=== PATIENT | female | born 1940 | race Caucasian/White ===

== ENCOUNTER 2022-01-17 11:57 | Inpatient (IN) | payer OTHER, SELFPAY ==
--- NOTE | ~2022-01-17 | CT_ITS ---
EXAMINATION: CT HEAD WITHOUT CONTRAST CLINICAL INFORMATION: Unsteady gait COMPARISON: None TECHNIQUE: Imaging was performed from the skull base to vertex without intravenous administration of contrast. This CT examination was performed using dose optimization techniques as appropriate, variously including the following: *Automated exposure control *Adjustment of mA and/or kV according to patient size (this includes techniques or standardized protocols for targeted exams where dose is matched to indication/reason for exam; i.e. extremities or head) *Use of iterative reconstruction technique Total exam dose length product: 639 mGy-cm FINDINGS: No intra or extra-axial fluid collection, hemorrhage, or mass. No ventriculomegaly. No midline shift or herniation. Basal cisterns are patent. Prater-white matter differentiation is maintained. No territorial encephalomalacia. No significant volume loss. Patchy periventricular and deep white matter hypoattenuation is consistent with mild small vessel ischemic changes. No calvarial fracture or soft tissue abnormality. The mastoid air cells and visualized portions of the paranasal sinuses are well aerated. A right-sided intraocular drainage device is noted. Mild cavernous carotid vascular calcifications. CT/CT head/brain wo con IMPRESSION: 1. No acute intracranial pathology.
--- NOTE | ~2022-01-17 | XR_ITS ---
EXAMINATION: XR HIP, LEFT CLINICAL INFORMATION: Pain. COMPARISON: None TECHNIQUE: Two views of the left hip. FINDINGS: No acute fractures or malalignment. The femoral heads are well-seated in their respective acetabula. Moderate degenerative changes in both hips, slightly greater on the left side. Symmetric sacroiliac joints. Moderate colonic and rectal stool burden. Nonspecific central calcification in the pelvis, possibly associated with fibroids. XR/XR hip LT w PEL1V IMPRESSION: No acute fractures or malalignment.
--- NOTE | ~2022-01-17 | MR_ITS ---
EXAMINATION: MR BRAIN WITHOUT AND WITH CONTRAST CLINICAL INFORMATION: Gait abnormality. Rule out stroke. COMPARISON: Head CT 01/17/2022. TECHNIQUE: Multiplanar, multisequence imaging of the brain was performed before and after the intravenous administration of 7 mL of Gadavist. FINDINGS: There is a small area of acute infarction involving the right precentral and postcentral gyri best defined on series 4 image . There is no hemorrhagic transformation. A mild amount of cortical enhancement is seen in this region, presumably on the basis of blood brain barrier breakdown An area of chronic hemosiderin staining is seen within the left parietal lobe. There is no mass or extra-axial fluid collection. The ventricles are normal in size without hydrocephalus. Moderate patchy T2/FLAIR hyperintensity seen within the cerebral white matter, typical of chronic microangiopathy. The ventricles and sulci are commensurate with mild degree of diffuse brain parenchymal volume loss. There are bilateral lens replacements. The major arterial flow voids are preserved at the skull base. 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 No evidence of hemorrhagic transformation. Background changes of chronic microangiopathy and brain parenchymal volume loss.
--- NOTE | ~2022-01-17 | US_ITS ---
EXAMINATION: US EXTRACRANIAL CAROTID DUPLEX, BILATERAL CLINICAL INFORMATION: Acute stroke COMPARISON: None TECHNIQUE: Real-time ultrasound and Doppler techniques (integrating B-mode 2-D vascular images, Doppler spectral analysis and color-flow Doppler imaging) were utilized to interrogate the extracranial carotid arteries, the vertebral arteries and proximal subclavian arteries bilaterally. The degree of stenosis is determined by criteria similar to NASCET. FINDINGS: Right Side: 1. There is mild atherosclerotic plaque seen in the bifurcation/proximal ICA region. 2. The common carotid artery PSV proximally is 110 cm/s and distally 82 cm/s. 3. The proximal internal carotid artery velocities are 80 cm/s systolic and 13 cm/s diastolic. 4. The proximal external carotid artery PSV is 121 cm/s. 5. The vertebral artery shows antegrade flow. 6. The subclavian artery waveforms are normal. Left Side: 1. There is mild atherosclerotic plaque seen in the bifurcation/proximal ICA region. 2. The common carotid artery PSV proximally is 123 cm/s and distally 81 cm/s. 3. The proximal internal carotid artery velocities are 54 cm/s systolic and 12 cm/s diastolic. 4. The proximal external carotid artery PSV is 69 cm/s. 5. The vertebral artery shows antegrade flow. 6. The subclavian artery waveforms are normal. ADDITIONAL FINDINGS: Thyroid is enlarged with multiple nodules the largest measuring 2.9 cm on the left. Thyroid ultrasound is recommended for further evaluation. US/US carotid duplex BI IMPRESSION: 1. RIGHT: Minimal, non-hemodynamically significant stenosis of the proximal right internal carotid artery corresponding to a 0-49% stenosis by velocity criteria. 2. LEFT: Minimal, non-hemodynamically significant stenosis of the proximal left internal carotid artery corresponding to a 0-49% stenosis by velocity criteria. 3. Incidentally noted thyroid goiter with nodules as large as 2.9 cm. Baseline thyroid ultrasound is recommended for further attenuation..
--- NOTE | 2022-01-17 12:04 | ED_ITS ---
HPI - General Adult General Chief complaint: Neuro Symptoms/Deficit Stated complaint: ?stroke Time Seen by Provider: 01/17/22 12:04 Source: patient and EMS Mode of arrival: EMS History of Present Illness HPI narrative: This 81-year-old female brought in by EMS from assisted living place who stated that patient was walking fine at 07:30 and then she was noted to have a change in gait. She was brought in as a questionable code stroke. Otherwise, patient herself denies any fevers, chills, shortness of breath, abdominal pain, arm or leg pain. Patient has baseline dementia, but states she did not realize that she was walking funny until someone told her .LKW: 0719 Related Data Allergies Allergy/AdvReac Type Severity Reaction Status Date / Time No Known Allergies Allergy Verified 01/17/22 12:08 Review of Systems Review of Systems: Pertinent positives and negatives as stated in HPI 10 point review of systems is otherwise negative. PMFSH Past Medical History Source: nursing notes reviewed Medical History Fixed dilated pupil of right eye Glaucoma Mitral valve prolapse Social History Social History Alcohol intake: current Alcohol intake frequency: holidays/special occasions only Patient Tobacco Use Status: Never used Tobacco Use of substances other than those prescribed or required for medical reasons: No Advance Directives: No Advance Directives Information Provided: Yes Physical Exam ED Vital Signs: Vital Signs - 24 hr 01/17/22 12:09 01/17/22 14:39 01/17/22 16:00 Temperature 98.2 F 98.3 F Pulse Rate 73 77 67 Respiratory Rate 16 16 16 Blood Pressure 154/80 H 150/69 H 125/57 L Pulse Oximetry 96 93 98 Oxygen Delivery Method Room Air Room Air Room Air BMI result Body Mass Index 25.9 VITAL SIGNS: Reviewed. GENERAL: Well developed, well nourished, in no acute distress. HEAD: Normocephalic/atraumatic EYES: PERRLA, EOMI, Right pupil dilated at baseline EARS: Ext canals without abnormality OROPHARYNX: no oral lesions noted, posterior pharynx clear LUNGS: Normal breath sounds. No adventitious sounds or accessory muscle use. SpO2<96> CARDIOVASCULAR: Regular rate and rhythm without noted murmurs, no JVD or lower e xtremity edema. ABDOMEN: Soft, non-tender, non-distended with bowel sounds. MUSCULOSKELETAL: No tenderness, deformities, or effusions noted on gross inspection. EXTREMITIES: No cyanosis, clubbing or edema. SKIN: Inspection of the skin reveals no rashes NEUROLOGIC: Alert and oriented x 4. Strength and sensation to light touch were grossly intact x 4, no facial asymmetry, no pronator drift, cranial nerves 2-12 are grossly intact, denies any dizziness on lifting her head. NIH Stroke Scale Internal: Initial- Upon Arrival Level of Consciousness: Alert Level of Consciousness Questions: Answers both questions correctly Level of Consciousness Commands: Performs both tasks correctly Best Gaze: Normal ( Patient does have pupil asymmetry which she has a baseline.) Visual: No visual loss Facial Palsy: Normal Motor Arm (Right): No drift Motor Arm (Left): No drift Motor Leg (Right): No drift Motor Leg (Left): No drift Limb Ataxia: Absent Sensory: Normal Best Language: No aphasia Dysarthia: Normal Extinction and Inattention: No abnormality Score: 0 Course Course Course Narrative: 81-year-old female with history and clinical presentation most consistent with alternative diagnosis as there is no evidence of acute neurologic deficit combined with the fact that last known well was 0730. On speaking further with the seen your opto mechanical engineer he states that she appears to have left lower extremity pain on walking. Of note on assessment bilateral leg strength patient is able to strongly push against my hand at the knee symmetrically without noticeable motor deficit. Will evaluate for alternative etiologies at this time. Review of all investigations otherwise negative for acute findings, but on attempts to ambulate patient she complains that her left leg feels weird and describes some numbness over the anterior portion of her left thigh but denies any decreased sensation on the lower leg and states that it feels like her leg will give out . She denies any pain, she was sent for head CT which is otherwise negative. I did discuss this case with Neurology who agrees that pursuing an MRI is not warranted at this time and instead neuro evaluation is within reason. Given patient's concerns regarding her ambulation and the fact that she is in an assisted living environment will discussed with inpatient hospitalist for further evaluation by Neurology. Inpatient hospitalist accepts admission. Medical Decision Making Lab Data Result diagrams: 01/17/22 12:34 01/17/22 12:34 Labs: Lab Results 01/17/22 01/17/22 01/17/22 Range/Units 12:03 12:06 12:34 WBC 6.0 (4.8-10.8) X10*3/uL RBC 4.87 (4.20-5.50) X10*6/uL Hgb 13.4 (12.0-16.0) g/dl Hct 41.8 (37.0-47.0) % MCV 85.8 (80.0-98.0) fL MCH 27.5 (27.0-33.0) pg MCHC 32.1 (31.0-35.0) g/dl RDW 14.0 (11.0-16.0) % Plt Count 218 (160-400) X10*3/uL MPV 9.4 (9.4-12.3) fL Immature Gran % (Auto) 0.2 (0.0-0.4) % Neut % (Auto) 67.2 (45-73) % Lymph % (Auto) 22.6 (20-40) % [place] % (Auto) 8.5 (2-11) % Eos % (Auto) 1.2 (0-4) % Baso % (Auto) 0.3 (0-2) % Lymph # (Auto) 1.4 (1.2-4.9) X10*3/uL [place] # (Auto) 0.5 (0.1-1.2) X10*3/uL Eos # (Auto) 0.1 (0.0-0.4) X10*3/uL Baso # (Auto) 0.0 (0.0-0.2) X10*3/uL Abs Immat Gran (auto) 0.01 (0.00-0.03) X10*3/uL Absolute Neuts (auto) 4.1 (2.0-8.3) x10*3/uL Absolute Nucleated RBC 0.000 (0.0-0.012) X10*3/uL Nucleated RBC % (auto) 0.0 (0.0-0.2) /100WBC Whole Blood PT 11.8 (11.1-13.5) sec Whole Blood INR 1.0 (0.9-1.1) Sodium (135-145) mmol/L Potassium (3.3-5.1) mmol/L Chloride (96-108) mmol/L Carbon Dioxide (22-29) mmol/L Anion Gap (12-20) BUN (9-16) mg/dL Creatinine (0.5-1.4) mg/dL Estim Creat Clear Calc Estimated GFR POC Glucose 93 (60-115) mg/dL Random Glucose (60-115) mg/dL Calcium (8.4-10.2) mg/dL Total Bilirubin (0.0-1.0) mg/dL AST (5-31) U/L ALT (0-31) U/L Alkaline Phosphatase (39-117) U/L Troponin I High Sens (<3.5-17.0) ng/L Total Protein (6.5-8.0) g/dL Albumin (3.5-5.0) g/dL Urine Color Urine Appearance Urine pH (5.0-8.0) Ur Specific [place] (1.005-1.025) Urine Protein (NEG-TRACE) MG/DL Urine Glucose (UA) (NEG) MG/DL Urine Ketones (NEG) MG/DL Urine Blood (NEG) Urine Nitrite (NEG) Ur Leukocyte Esterase (NEG) 01/17/22 01/17/22 01/17/22 Range/Units 12:34 12:34 12:53 WBC (4.8-10.8) X10*3/uL RBC (4.20-5.50) X10*6/uL Hgb (12.0-16.0) g/dl Hct (37.0-47.0) % MCV (80.0-98.0) fL MCH (27.0-33.0) pg MCHC (31.0-35.0) g/dl RDW (11.0-16.0) % Plt Count (160-400) X10*3/uL MPV (9.4-12.3) fL Immature Gran % (Auto) (0.0-0.4) % Neut % (Auto) (45-73) % Lymph % (Auto) (20-40) % [place] % (Auto) (2-11) % Eos % (Auto) (0-4) % Baso % (Auto) (0-2) % Lymph # (Auto) (1.2-4.9) X10*3/uL [place] # (Auto) (0.1-1.2) X10*3/uL Eos # (Auto) (0.0-0.4) X10*3/uL Baso # (Auto) (0.0-0.2) X10*3/uL Abs Immat Gran (auto) (0.00-0.03) X10*3/uL Absolute Neuts (auto) (2.0-8.3) x10*3/uL Absolute Nucleated RBC (0.0-0.012) X10*3/uL Nucleated RBC % (auto) (0.0-0.2) /100WBC Whole Blood PT (11.1-13.5) sec Whole Blood INR (0.9-1.1) Sodium 142 (135-145) mmol/L Potassium 5.1 (3.3-5.1) mmol/L Chloride 108 (96-108) mmol/L Carbon Dioxide 27 (22-29) mmol/L Anion Gap 12 (12-20) BUN 17 H (9-16) mg/dL Creatinine 0.81 (0.5-1.4) mg/dL Estim Creat Clear Calc 53.6 Estimated GFR > 60 POC Glucose (60-115) mg/dL Random Glucose 113 (60-115) mg/dL Calcium 9.6 (8.4-10.2) mg/dL Total Bilirubin 0.5 (0.0-1.0) mg/dL AST 21 (5-31) U/L ALT 17 (0-31) U/L Alkaline Phosphatase 72 (39-117) U/L Troponin I High Sens < 3.5 (<3.5-17.0) ng/L Total Protein 7.0 (6.5-8.0) g/dL Albumin 4.4 (3.5-5.0) g/dL Urine Color YELLOW Urine Appearance CLEAR Urine pH 6.5 (5.0-8.0) Ur Specific [place] <= 1.005 (1.005-1.025) Urine Protein NEG (NEG-TRACE) MG/DL Urine Glucose (UA) NEG (NEG) MG/DL Urine Ketones NEG (NEG) MG/DL Urine Blood NEG (NEG) Urine Nitrite NEG (NEG) Ur Leukocyte Esterase NEG (NEG) ECG Data Attestation: I personally reviewed and interpreted this ECG as follows: Prior ECG tracings: not available for review Interpretation: Sinus rhythm, RBBB, HR - 64, no STEMI, AR/ QTC are within normal limits. Discharge Plan Discharge Clinical Impression: Unsteady gait when walking, Need for assistance due to unsteady gait, Dementia Patient Disposition: Admitted As Inpatient
[2022-01-17 12:09] VITALS: BP 154/80; BP 155/85; PULSE 70; PULSE 73; RESP 16; TEMP 36.8; O2SAT 94; O2SAT 96; BMI 25.9
[2022-01-17 12:09] LABS: Prothrombin Time Whole Bld POC 11.8 sec (11.1-13.5)
[2022-01-17 12:10] LABS: Glucose, Whole Blood 93 mg/dL (60-115)
--- NOTE | 2022-01-17 12:16 | PC.NURSE ---
patient a&ox3, denies pain/discomfort, p c/o lle weakness, neuro otherwise intact, ekg performed, cardiac rehabilitation specialist applied-nsr, vss, gcs 15, pt stated rt eye dilation is normal/baseline for her, call cummins within reach, will continue o monitor
--- NOTE | 2022-01-17 12:24 | ECG_ITS ---
Test Reason : STROKE Blood Pressure : / mmHG Vent. Rate : 064 BPM Atrial Rate : 064 BPM P-R Int : 138 ms QRS Dur : 128 ms QT Int : 418 ms P-R-T Axes : 056 093 013 degrees QTc Int : 431 ms Sinus rhythm with Fusion complexes Right bundle branch block Abnormal ECG No previous ECGs available Referred By: Cherrie Villalpando Electronically Signed By:Marquise Barr
[2022-01-17 12:40] LABS: MANUAL DIFF FLAG NO
[2022-01-17 12:42] LABS: Basophils Percent Auto 0.3 % (0-2); Eosinophils Absolute Auto 0.1 X10*3/uL (0.0-0.4); Eosinophils Percent Auto 1.2 % (0-4); Hematocrit 41.8 % (37.0-47.0); Hemoglobin 13.4 g/dl (12.0-16.0); Imm Gran Abs Auto 0.01 X10*3/uL (0.00-0.03); Imm Gran Pct Auto 0.2 % (0.0-0.4); Lymphocytes Absolute Auto 1.4 X10*3/uL (1.2-4.9); Lymphocytes Percent Auto 22.6 % (20-40); Mean Corpuscular HGB Conc 32.1 g/dl (31.0-35.0); Mean Corpuscular Hemoglobin 27.5 pg (27.0-33.0); Mean Corpuscular Volume 85.8 fL (80.0-98.0); Mean Platelet Volume 9.4 fL (9.4-12.3); Monocytes Absolute Auto 0.5 X10*3/uL (0.1-1.2); Monocytes Percent Auto 8.5 % (2-11); Neutrophils Absolute Auto 4.1 x10*3/uL (2.0-8.3); Neutrophils Percent Auto 67.2 % (45-73); Platelet Count 218 X10*3/uL (160-400); Red Blood Count 4.87 X10*6/uL (4.20-5.50)
[2022-01-17 12:58] LABS: Alanine Aminotransferase 17 U/L (0-31); Albumin Level 4.4 g/dL (3.5-5.0); Alkaline Phosphatase 72 U/L (39-117); Anion Gap 12 (12-20); Aspartate Amino Transferase 21 U/L (5-31); Bilirubin Total 0.5 mg/dL (0.0-1.0); Blood Urea Nitrogen 17 mg/dL (9-16); Calcium 9.6 mg/dL (8.4-10.2); Carbon Dioxide 27 mmol/L (22-29); Chloride 108 mmol/L (96-108); Creatinine Clr Calc Pharmacy 53.6; Estimated Glomerular Filt Rate > 60; Glucose Random 113 mg/dL (60-115); Potassium 5.1 mmol/L (3.3-5.1); Sodium 142 mmol/L (135-145)
[2022-01-17 13:01] LABS: Appearance Urine CLEAR; Color Urine YELLOW; Glucose Urine UA NEG (NEG); Leukocyte Esterase Urine NEG (NEG); Nitrite Urine NEG (NEG); PH 6.5 (5.0-8.0); Specific Gravity - Urine <= 1.005 (1.005-1.025); Urine Blood NEG (NEG); Urine Ketones NEG (NEG); Urine Protein NEG (NEG-TRACE)
[2022-01-17 13:04] LABS: Troponin-I High Sensitivity < 3.5 ng/L (<3.5-17.0)
--- NOTE | 2022-01-17 14:00 | PC.NURSE ---
daughter number Daughter: Elvira [phone] Daughter is currently out of the country in [place], is available via phone at anytime. She has been updated when she calls per mother request.
[2022-01-17 14:39] VITALS: BP 150/69; PULSE 77; RESP 16; O2SAT 93
--- NOTE | 2022-01-17 15:10 | PC.NURSE ---
pt to ct scan
[2022-01-17 16:00] VITALS: BP 125/57; PULSE 67; RESP 16; TEMP 36.8; O2SAT 98
--- NOTE | 2022-01-17 17:03 | PC.NURSE ---
patient alert to baseline, continues to complain of leg weakness, no c/o pain or discomfort, vitals continue to be stable, will continue to monitor
[2022-01-17 17:36] LABS: COVID-19 Test Negative (Negative)
--- NOTE | 2022-01-17 17:52 | PHA.MEDREC ---
Addendum entered by John Pollard, [facility] 01/17/22 17:56: called [facility], they do not have a med list Original Note: Pharmacy Consult ? Medication Reconciliation Pharmacy has completed the medication reconciliation. Spoke with pt's daughter. confirmed with daughter that pt is on 3 eyedrops
--- NOTE | 2022-01-17 17:55 | PM.IMHP ---
History of Present Illness Date of Service: 01/17/22 Chief Complaint: Left lower extremity weakness A 81 years old lady with PMH of glaucoma, advanced dementia on assisted living who presents to the hospital by EMS for reported abnormal gait and left lower extremity weakness. The patient is very poor historian, no information given by the staff at the assisted living, most information from MD and EMS. She reports not remembering why did she end up in the hospital. Denies feeling any weakness in any part of her body at this point. Seems like in the morning she was seen walking in an awkward way and that was concerning for the staff who felt that her left lower extremity was weaker. She was brought to the emergency but scored [address] scan of the head was done came back negative for any acute findings. Blood work within normal with no acute infection noted. Will be admitted for further evaluation and monitoring. Review of Systems Review of Systems: No fever, chills or weakness No chest pain, palpitation No shortness of breath or coughing No abdominal pain, nausea or vomiting No urinary symptoms No any rash or wounds PMFSH Medical History Fixed dilated pupil of right eye Glaucoma Mitral valve prolapse Social History Alcohol intake: current Alcohol intake frequency: holidays/special occasions only Patient Tobacco Use Status: Never used Tobacco Use of substances other than those prescribed or required for medical reasons: No Advance Directives: No Advance Directives Information Provided: Yes Meds Allergies Allergy/AdvReac Type Severity Reaction Status Date / Time No Known Allergies Allergy Verified 01/17/22 12:08 Active Medications: Current Medications Acetaminophen (Acetaminophen 325 Mg Tablet) 650 mg PO Q6H PRN PRN Reason: Pain, Mild (Pain Scale 1-3) Donepezil HCl (Donepezil Hcl 5 Mg Tablet) 5 mg PO DAILY ARIELA Dorzolamide HCl (Dorzolamide Hcl 2 % Ophth Gavi 10 Ml Drpbtl) 1 drop EYE-LEFT BID ARIELA Enoxaparin Sodium (Enoxaparin Sodium 40 Mg/0.4 Ml Syringe) 40 mg SUBCUT Q24H ARIELA Ondansetron HCl (Ondansetron Hcl 4 Mg/2 Ml Vial) 4 mg IVPUSH Q8H PRN PRN Reason: Nausea and Vomiting Pharmacy Consult (Consult Rx Perform Med Rec) 1 each MISCELLANE ONCE PRN PRN Reason: Consult order Pharmacy Consult (Consult Rx Perform Med Rec) 1 each MISCELLANE ONCE PRN PRN Reason: Consult order Home Medications Medication Instructions Recorded Confirmed Last Taken Type brimonidine 0.2 % eye drops 1 drp ophthalmic-Left BID 01/17/22 01/17/22 Unknown History donepezil 5 mg tablet 1 tab PO DAILY 01/17/22 01/17/22 Unknown History dorzolamide 2 % eye drops 1 drp ophthalmic-Left BID 01/17/22 01/17/22 Unknown History multivitamin 1 tab PO DAILY 01/17/22 01/17/22 Unknown History timolol maleate 0.5 % eye drops 1 drp ophthalmic (eye) BID 01/17/22 01/17/22 Unknown History Physical Exam Vital Signs and Narrative: Vital Signs: Last Vital Signs Temp 98.3 F 01/17/22 16:00 Pulse 67 01/17/22 16:00 Resp 16 01/17/22 16:00 BP 125/57 L 01/17/22 16:00 Pulse Ox 98 01/17/22 16:00 O2 Del Method 01/17/22 16:00 BMI result Body Mass Index 25.9 Const: Other: Constitutional : Alert, oriented, not in distress Neck : Normal inspection, Supple Cardiovascular : RRR, no JVP, no lower extremity edema Respiratory : fair bilateral air entry, no crackles, wheezes or rhonchi Gastrointestinal: soft, lax, Normal bowel sounds, Non tender Skin : Warm, Dry Neurological : Alert & oriented x3, No focal deficit , CN 2-12 within normal, mild superficial sensation difference between upper and lower thigh with decreased feeling in the thigh area left leg Results Labs CBC and Chem 7: 01/17/22 12:34 01/17/22 12:34 Labs: Laboratory Results - last 24 hr 01/17/22 01/17/22 01/17/22 12:03 12:06 12:34 MCV 85.8 MCH 27.5 MCHC 32.1 RDW 14.0 Plt Count 218 MPV 9.4 Immature Gran % (Auto) 0.2 Neut % (Auto) 67.2 Lymph % (Auto) 22.6 [place] % (Auto) 8.5 Eos % (Auto) 1.2 Baso % (Auto) 0.3 Lymph # (Auto) 1.4 [place] # (Auto) 0.5 Eos # (Auto) 0.1 Baso # (Auto) 0.0 Abs Immat Gran (auto) 0.01 Absolute Neuts (auto) 4.1 Absolute Nucleated RBC 0.000 Nucleated RBC % (auto) 0.0 Whole Blood PT 11.8 Whole Blood INR 1.0 Anion Gap Estim Creat Clear Calc Estimated GFR POC Glucose 93 Random Glucose Calcium Total Bilirubin AST ALT Alkaline Phosphatase Troponin I High Sens Total Protein Albumin Urine Color Urine Appearance Urine pH Ur Specific [place] Urine Protein Urine Glucose (UA) Urine Ketones Urine Blood Urine Nitrite Ur Leukocyte Esterase COVID-19 (PATEL) COVID-19 [employer] 01/17/22 01/17/22 01/17/22 12:34 12:34 12:53 MCV MCH MCHC RDW Plt Count MPV Immature Gran % (Auto) Neut % (Auto) Lymph % (Auto) [place] % (Auto) Eos % (Auto) Baso % (Auto) Lymph # (Auto) [place] # (Auto) Eos # (Auto) Baso # (Auto) Abs Immat Gran (auto) Absolute Neuts (auto) Absolute Nucleated RBC Nucleated RBC % (auto) Whole Blood PT Whole Blood INR Anion Gap 12 Estim Creat Clear Calc 53.6 Estimated GFR > 60 POC Glucose Random Glucose 113 Calcium 9.6 Total Bilirubin 0.5 AST 21 ALT 17 Alkaline Phosphatase 72 Troponin I High Sens < 3.5 Total Protein 7.0 Albumin 4.4 Urine Color YELLOW Urine Appearance CLEAR Urine pH 6.5 Ur Specific [place] <= 1.005 Urine Protein NEG Urine Glucose (UA) NEG Urine Ketones NEG Urine Blood NEG Urine Nitrite NEG Ur Leukocyte Esterase NEG COVID-19 (PATEL) COVID-[employer] 01/17/22 17:08 MCV MCH MCHC RDW Plt Count MPV Immature Gran % (Auto) Neut % (Auto) Lymph % (Auto) [place] % (Auto) Eos % (Auto) Baso % (Auto) Lymph # (Auto) [place] # (Auto) Eos # (Auto) Baso # (Auto) Abs Immat Gran (auto) Absolute Neuts (auto) Absolute Nucleated RBC Nucleated RBC % (auto) Whole Blood PT Whole Blood INR Anion Gap Estim Creat Clear Calc Estimated GFR POC Glucose Random Glucose Calcium Total Bilirubin AST ALT Alkaline Phosphatase Troponin I High Sens Total Protein Albumin Urine Color Urine Appearance Urine pH Ur Specific [place] Urine Protein Urine Glucose (UA) Urine Ketones Urine Blood Urine Nitrite Ur Leukocyte Esterase COVID-19 (PATEL) Negative COVID-19 Clin Com See Note Imaging Radiologist's Impressions: Impressions Head CT 01/17/22 15:17 IMPRESSION: 1. No acute intracranial pathology. Hip/Pelvis X-Ray 01/17/22 17:42 IMPRESSION: No acute fractures or malalignment. Assessment and Plan (1) Unsteady gait when walking: Status: Acute (2) Transient left leg weakness: Status: Acute Plan A 81 years old lady with PMH of glaucoma, advanced dementia on assisted living who presents to the hospital by EMS for reported abnormal gait and left lower extremity weakness. Transient left leg weakness Unclear from the history CT scan negative for any acute findings Seems more sensation than strength Neuro checks for possible TIA Get Neurology evaluation Keep on telemetry Check lipid profile Start baby aspirin Unsteady gait to get PT and OT evaluation Glaucoma continue home eye drops DVT PPX Lovenox Quality Stroke Does the patient have a stroke diagnosis?: No VTE Prior VTE?: No VTE Risk Level:: Medical - moderate - high VTE Device Contraindication: Treatment Not Indicated VTE Drug Contraindication: N/A - Med Ordered
[2022-01-17] MEDS: Aspirin Enteric Coated 81 MG TABLET.DR PO (18:22)
[2022-01-17] MEDS: Enoxaparin Sodium 40 MG/0.4 ML SYRINGE SUBCUT (18:22)
--- NOTE | 2022-01-17 18:23 | PC.NURSE ---
patient alert to baseline, pt medicated per order, cardiac monito intact, call cummins within reach, will continue to monitor
--- NOTE | 2022-01-17 18:51 | PC.NURSE ---
called floor to give report, go rns name, tiger texted nurse to give report- awaiting for a call back
[2022-01-17 20:00] VITALS: BP 128/61; PULSE 68; RESP 18; TEMP 36.2; O2SAT 98
[2022-01-17 23:07] VITALS: BP 119/55; PULSE 68; RESP 18; TEMP 36.7; O2SAT 93
[2022-01-17] MEDS: timoloL maleate 0.5 % Oph Sol 5 ML DRBTL 1 DROP EYE-BOTH (23:34)
[2022-01-17] MEDS: Dorzolamide HCl 2 % Ophth Sol 10 ML DRPBTL 1 DROP EYE-LEFT (23:34)
[2022-01-17] MEDS: Brimonidine Tartrate 0.2% Oph 5 ML BOTTLE 1 DROP EYE-LEFT (23:34)
[2022-01-18] VITALS (7 sets, daily range): BP systolic 103–131; BP diastolic 55–63; PULSE 60–78; RESP 18–20; TEMP 36.1–37.2; O2SAT 90–98
[2022-01-18 07:38] LABS: Anion Gap 10 (12-20); Blood Urea Nitrogen 16 mg/dL (9-16); Calcium 8.9 mg/dL (8.4-10.2); Carbon Dioxide 27 mmol/L (22-29); Chloride 109 mmol/L (96-108); Cholesterol 220 mg/dL; Creatinine Clr Calc Pharmacy 62.9; Estimated Glomerular Filt Rate > 60; Glucose Random 96 mg/dL (60-115); HDL Cholesterol 49 mg/dL; LDL Cholesterol Calculated 154 mg/dl; Potassium 4.7 mmol/L (3.3-5.1); Sodium 141 mmol/L (135-145); Triglycerides 85 mg/dL
--- NOTE | 2022-01-18 08:09 | MHC.CM.PN ---
CM met with Patient at bedside and addressed IMM with her, providing her with the original and placing a copy on the chart. Patient lives in an apartment with her and 2 Adult Children and she uses a cane to assist with mobility. Home no services is the goal (no PCP/functionally independent) and CM has initiated and will follow for dc planning. Patient is Covid vax'd X2.
[2022-01-18] MEDS: Donepezil HCl 5 MG TABLET PO (08:27)
[2022-01-18] MEDS: Aspirin Enteric Coated 81 MG TABLET.DR PO (08:27)
[2022-01-18] MEDS: Multivitamin TABLET 1 TAB PO (08:27)
[2022-01-18] MEDS: Dorzolamide HCl 2 % Ophth Sol 10 ML DRPBTL 1 DROP EYE-LEFT ×2 (08:28→20:02)
[2022-01-18] MEDS: timoloL maleate 0.5 % Oph Sol 5 ML DRBTL 1 DROP EYE-BOTH ×2 (08:28→20:02)
[2022-01-18] MEDS: Brimonidine Tartrate 0.2% Oph 5 ML BOTTLE 1 DROP EYE-LEFT ×2 (08:28→20:02)
--- NOTE | 2022-01-18 09:09 | MHC.CM.PN ---
Patient has a diagnosis of Dementia so CM attempted to call Daughter/HCP/Elvira @ [phone] but she was unavailable. CM went to Patient's room to see if Daughter was at bedside and Patient appeared to be responding appropriately to questions. Per Patient, she lives alone at [facility] and she receives a knock on the door daily from [facility] staff to remind her to take her eye drops. Patient may benefit from new VNA at some point. Home is the goal and CM has initiated and will follow for dc planning. Patient states that Elvira is out of town; Patient cannot recall the name of her PCP but states that Elvira will know the name. Patient received 2 Covid vax while at [facility].
--- NOTE | 2022-01-18 11:26 | P.CNNE_ITS ---
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 She had no recollection of what had happened stating that he did not know why she was here. She provided some of her own history but also stated that she was not sure how long she has been living in [facility]. According to her her daughter presently was vacationing in [place]. She denied any pain or loss of bowel bladder control. Review of Systems Review of Systems: No recent cold or flu-like illness PMFSH Past Medical History Medical History Fixed dilated pupil of right eye Glaucoma Mitral valve prolapse Social History Social History Alcohol intake: current Alcohol intake frequency: holidays/special occasions only Patient Tobacco Use Status: Never used Tobacco service: No Current occupational status: retired [employer] Allergies Allergy/AdvReac Type Severity Reaction Status Date / Time No Known Allergies Allergy Verified 01/17/22 12:08 Active Medications: Current Medications Acetaminophen (Acetaminophen 325 Mg Tablet) 650 mg PO Q6H PRN PRN Reason: Pain, Mild (Pain Scale 1-3) Aspirin (Aspirin Enteric Coated 81 Mg Tablet.Dr) 81 mg PO DAILY [facility] Last Admin: 01/18/22 08:27 Dose: 81 mg Brimonidine Tartrate (Brimonidine Tartrate 0.2% Oph 5 Ml Bottle) 1 drop EYE- LEFT BID [facility] Last Admin: 01/18/22 08:28 Dose: 1 drop Donepezil HCl (Donepezil Hcl 5 Mg Tablet) 5 mg PO DAILY [facility] Last Admin: 01/18/22 08:27 Dose: 5 mg Dorzolamide HCl (Dorzolamide Hcl 2 % Ophth Gavi 10 Ml Drpbtl) 1 drop EYE-LEFT BID [facility] Last Admin: 01/18/22 08:28 Dose: 1 drop Enoxaparin Sodium (Enoxaparin Sodium 40 Mg/0.4 Ml Syringe) 40 mg SUBCUT Q24H [facility] Last Admin: 01/17/22 18:22 Dose: 40 mg Multivitamins/Vitamin C (Multivitamin Tablet) 1 tab PO DAILY [facility] Last Admin: 01/18/22 08:27 Dose: 1 tab Ondansetron HCl (Ondansetron Hcl 4 Mg/2 Ml Vial) 4 mg IVPUSH Q8H PRN PRN Reason: Nausea and Vomiting Pharmacy Consult (Consult Rx Perform Med Rec) 1 each MISCELLANE ONCE PRN PRN Reason: Consult order Pharmacy Consult (Consult Rx Perform Med Rec) 1 each MISCELLANE ONCE PRN PRN Reason: Consult order Timolol Maleate (Timolol Maleate 0.5 % Oph Gavi 5 Ml Drbtl) 1 drop EYE-BOTH BID [facility] Last Admin: 01/18/22 08:28 Dose: 1 drop Home Medications Medication Instructions Recorded Confirmed Last Taken Type brimonidine 0.2 % eye drops 1 drp ophthalmic-Left BID 01/17/22 01/17/22 Unknown History donepezil 5 mg tablet 1 tab PO DAILY 01/17/22 01/17/22 Unknown History dorzolamide 2 % eye drops 1 drp ophthalmic-Left BID 01/17/22 01/17/22 Unknown History multivitamin 1 tab PO DAILY 01/17/22 01/17/22 Unknown History timolol maleate 0.5 % eye drops 1 drp ophthalmic (eye) BID 01/17/22 01/17/22 Unknown History Physical Exam Vital Signs: Vital Signs: Last Vital Signs Temp 97.5 F 01/18/22 07:51 Pulse 68 01/18/22 07:51 Resp 20 01/18/22 07:51 BP 130/61 01/18/22 07:51 Pulse Ox 90 L 01/18/22 07:51 O2 Del Method 01/18/22 07:51 BMI result Body Mass Index 25.9 Neuro: Other: Alert and awake with normal spontaneity of speech fluency comprehension and affect. Memory for recent events was affected as reported in HPI. Pupils were round, some right slightly bigger than left. There was mild right-sided ptosis. Face was symmetrical. There was no focal arm or leg weakness. Deep tendon reflexes were trace with flexor plantars. She was able to get up and walk to the other side of the room with no significant difficulty. When turning around, she was slightly unsteady. Speech was normal. Results Labs CBC & Chem 7: 01/17/22 12:34 01/18/22 06:17 Labs: Short CBC 01/17/22 Range/Units 12:34 WBC 6.0 (4.8-10.8) X10*3/uL Hgb 13.4 (12.0-16.0) g/dl Hct 41.8 (37.0-47.0) % Plt Count 218 (160-400) X10*3/uL BMP 01/17/22 01/18/22 12:34 06:17 Sodium 142 141 Potassium 5.1 4.7 Chloride 108 109 H Carbon Dioxide 27 27 BUN 17 H 16 Creatinine 0.81 0.69 Calcium 9.6 8.9 D Liver Function 01/17/22 Range/Units 12:34 Total Bilirubin 0.5 (0.0-1.0) mg/dL AST 21 (5-31) U/L ALT 17 (0-31) U/L Alkaline Phosphatase 72 (39-117) U/L Albumin 4.4 (3.5-5.0) g/dL Urine 01/17/22 Range/Units 12:53 Urine Color YELLOW Urine Appearance CLEAR Urine pH 6.5 (5.0-8.0) Ur Specific [place] <= 1.005 (1.005-1.025) Urine Protein NEG (NEG-TRACE) MG/DL Urine Glucose (UA) NEG (NEG) MG/DL Noncontrast head CT revealed moderately severe diffuse cerebral atrophy Assessment and Plan (1) Unsteady gait when walking: Status: Acute 81 years old woman who probably has 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 She did not know what had happened and had no recollection. Her examination at this time revealed cognitive difficulties in mild gait disorder. Exact etiology of recent change in her gait pattern was unclear. I would recommend obtaining an MRI of brain without contrast rule out any stroke, and if that is negative, also an EEG to rule out possibility of seizure disorder as she had no recollection of what had happened. (2) Dementia: Status: Acute Procedures Date of Service Date of Service: 01/18/22
--- NOTE | 2022-01-18 11:59 | HO.PM.IMPN ---
Subjective Subjective Date of Service: 01/18/22 Interval History: Seen and evaluated this morning Reporting left leg weakness upon ambulating Feels strong otherwise No other overnight events Review of Systems No fever, chills or weakness No chest pain, palpitation No shortness of breath or coughing No abdominal pain, nausea or vomiting No urinary symptoms No any rash or wounds Physical Exam Vital Signs: Vital Signs: Last Vital Signs Temp 98.2 F 01/18/22 11:28 Pulse 64 01/18/22 11:28 Resp 20 01/18/22 11:28 BP 103/55 L 01/18/22 11:28 Pulse Ox 93 01/18/22 11:28 O2 Del Method 01/18/22 11:28 BMI result Body Mass Index 25.9 Const: Other: Constitutional : Alert, oriented, not in distress Neck : Normal inspection, Supple Cardiovascular : RRR, no JVP, no lower extremity edema Respiratory : fair bilateral air entry, no crackles, wheezes or rhonchi Gastrointestinal: soft, lax, Normal bowel sounds, Non tender Skin : Warm, Dry Neurological : Alert & oriented x3, No focal deficit , CN 2-12 within normal, mild superficial sensation difference between right and left thigh with more decreased sensation in the left leg but no paresthesia or pain Objective Data Active Medications Acetaminophen (Acetaminophen 325 Mg Tablet) 650 mg PO Q6H PRN PRN Reason: Pain, Mild (Pain Scale 1-3) Aspirin (Aspirin Enteric Coated 81 Mg Tablet.) 81 mg PO DAILY [facility] Last Admin: 01/18/22 08:27 Dose: 81 mg Documented By: JESSE Brimonidine Tartrate (Brimonidine Tartrate 0.2% Oph 5 Ml Bottle) 1 drop EYE-LEFT BID [facility] Last Admin: 01/18/22 08:28 Dose: 1 drop Documented By: JESSE Donepezil HCl (Donepezil Hcl 5 Mg Tablet) 5 mg PO DAILY [facility] Last Admin: 01/18/22 08:27 Dose: 5 mg Documented By: JESSE Dorzolamide HCl (Dorzolamide Hcl 2 % Ophth Gavi 10 Ml Drpbtl) 1 drop EYE-LEFT BID [facility] Last Admin: 01/18/22 08:28 Dose: 1 drop Documented By: JESSE Enoxaparin Sodium (Enoxaparin Sodium 40 Mg/0.4 Ml Syringe) 40 mg SUBCUT Q24H [facility] Last Admin: 01/17/22 18:22 Dose: 40 mg Documented By: JESSICA Multivitamins/Vitamin C (Multivitamin Tablet) 1 tab PO DAILY [facility] Last Admin: 01/18/22 08:27 Dose: 1 tab Documented By: JESSE Ondansetron HCl (Ondansetron Hcl 4 Mg/2 Ml Vial) 4 mg IVPUSH Q8H PRN PRN Reason: Nausea and Vomiting Pharmacy Consult (Consult Rx Perform Med Rec) 1 each MISCELLANE ONCE PRN PRN Reason: Consult order Pharmacy Consult (Consult Rx Perform Med Rec) 1 each MISCELLANE ONCE PRN PRN Reason: Consult order Timolol Maleate (Timolol Maleate 0.5 % Oph Gavi 5 Ml Drbtl) 1 drop EYE-BOTH BID [facility] Last Admin: 01/18/22 08:28 Dose: 1 drop Documented By: JESSE Labs CBC & Chem 7: 01/17/22 12:34 01/18/22 06:17 Labs: Laboratory Results - last 24 hr 01/17/22 01/17/22 01/17/22 12:03 12:06 12:34 MCV 85.8 MCH 27.5 MCHC 32.1 RDW 14.0 Plt Count 218 MPV 9.4 Immature Gran % (Auto) 0.2 Neut % (Auto) 67.2 Lymph % (Auto) 22.6 Jewell % (Auto) 8.5 Eos % (Auto) 1.2 Baso % (Auto) 0.3 Lymph # (Auto) 1.4 Jewell # (Auto) 0.5 Eos # (Auto) 0.1 Baso # (Auto) 0.0 Abs Immat Gran (auto) 0.01 Absolute Neuts (auto) 4.1 Absolute Nucleated RBC 0.000 Nucleated RBC % (auto) 0.0 Whole Blood PT 11.8 Whole Blood INR 1.0 Anion Gap Estim Creat Clear Calc Estimated GFR POC Glucose 93 Random Glucose Calcium Total Bilirubin AST ALT Alkaline Phosphatase Troponin I High Sens Total Protein Albumin Triglycerides Cholesterol LDL Cholesterol, Calc HDL Cholesterol Urine Color Urine Appearance Urine pH Ur Specific [place] Urine Protein Urine Glucose (UA) Urine Ketones Urine Blood Urine Nitrite Ur Leukocyte Esterase COVID-19 (PATEL) COVID-19 Clin Com 01/17/22 01/17/22 01/17/22 12:34 12:34 12:53 MCV MCH MCHC RDW Plt Count MPV Immature Gran % (Auto) Neut % (Auto) Lymph % (Auto) Jewell % (Auto) Eos % (Auto) Baso % (Auto) Lymph # (Auto) Jewell # (Auto) Eos # (Auto) Baso # (Auto) Abs Immat Gran (auto) Absolute Neuts (auto) Absolute Nucleated RBC Nucleated RBC % (auto) Whole Blood PT Whole Blood INR Anion Gap 12 Estim Creat Clear Calc 53.6 Estimated GFR > 60 POC Glucose Random Glucose 113 Calcium 9.6 Total Bilirubin 0.5 AST 21 ALT 17 Alkaline Phosphatase 72 Troponin I High Sens < 3.5 Total Protein 7.0 Albumin 4.4 Triglycerides Cholesterol LDL Cholesterol, Calc HDL Cholesterol Urine Color YELLOW Urine Appearance CLEAR Urine pH 6.5 Ur Specific [place] <= 1.005 Urine Protein NEG Urine Glucose (UA) NEG Urine Ketones NEG Urine Blood NEG Urine Nitrite NEG Ur Leukocyte Esterase NEG COVID-19 (PATEL) COVID-19 [facility] 01/17/22 01/18/22 17:08 06:17 MCV MCH MCHC RDW Plt Count MPV Immature Gran % (Auto) Neut % (Auto) Lymph % (Auto) Jewell % (Auto) Eos % (Auto) Baso % (Auto) Lymph # (Auto) Jewell # (Auto) Eos # (Auto) Baso # (Auto) Abs Immat Gran (auto) Absolute Neuts (auto) Absolute Nucleated RBC Nucleated RBC % (auto) Whole Blood PT Whole Blood INR Anion Gap 10 L Estim Creat Clear Calc 62.9 Estimated GFR > 60 POC Glucose Random Glucose 96 Calcium 8.9 D Total Bilirubin AST ALT Alkaline Phosphatase Troponin I High Sens Total Protein Albumin Triglycerides 85 Cholesterol 220 LDL Cholesterol, Calc 154 HDL Cholesterol 49 Urine Color Urine Appearance Urine pH Ur Specific [place] Urine Protein Urine Glucose (UA) Urine Ketones Urine Blood Urine Nitrite Ur Leukocyte Esterase COVID-19 (PATEL) Negative COVID-19 [facility] See Note Assessment and Plan (1) Transient left leg weakness: Status: Acute (2) Unsteady gait when walking: Status: Acute Plan A 81 years old lady with PMH of glaucoma, advanced dementia on assisted living who presents to the hospital by EMS for reported abnormal gait and left lower extremity weakness. # Transient left leg weakness # abnormal gait CT scan negative for any acute findings Seems more sensation than strength Neuro checks Pending Neurology evaluation Keep on telemetry Within normal lipid profile Started on baby aspirin Unsteady gait Pending PT and OT evaluation Glaucoma continue home eye drops DVT PPX Lovenox Quality Stroke Does the patient have a stroke diagnosis?: No VTE Prior VTE?: No VTE Risk Level:: Medical - moderate - high VTE Device Contraindication: Treatment Not Indicated VTE Drug Contraindication: N/A - Med Ordered
[2022-01-18] MEDS: Enoxaparin Sodium 40 MG/0.4 ML SYRINGE SUBCUT (18:24)
--- NOTE | 2022-01-19 | EEG_ITS ---
This is a 16-channel EEG with an EKG lead. The patient is reported awake during the tracing. Background EEG rhythm is 10 to 12 hertz 5 to 30 microvolt posteriorly and lower amplitude fast anteriorly. Photic stimulation did not produce any significant driving. Hypoventilation is not performed. No definite sharp wave spikes or paroxysmal tendency noted. Cardiac lead did not reveal any significant abnormality. IMPRESSION: No definite abnormality noted on this routine EEG. Epilepsy is strongly suspected, and ambulatory 48 hour EEG is recommended. MD OMEGA Hastings/ALFREDO / [id number]
[2022-01-19 03:30] VITALS: BP 132/63; PULSE 66; RESP 18; TEMP 36.8; O2SAT 92
[2022-01-19 07:34] LABS: Glucose, Whole Blood 108 mg/dL (60-115)
[2022-01-19 07:57] VITALS: BP 123/66; PULSE 65; RESP 18; TEMP 36.8; O2SAT 93
[2022-01-19] MEDS: Multivitamin TABLET 1 TAB PO (08:50)
[2022-01-19] MEDS: Brimonidine Tartrate 0.2% Oph 5 ML BOTTLE 1 DROP EYE-LEFT (08:50)
[2022-01-19] MEDS: Donepezil HCl 5 MG TABLET PO (08:50)
[2022-01-19] MEDS: Aspirin Enteric Coated 81 MG TABLET.DR PO (08:50)
[2022-01-19] MEDS: timoloL maleate 0.5 % Oph Sol 5 ML DRBTL 1 DROP EYE-BOTH ×2 (08:52→19:21)
[2022-01-19] MEDS: Dorzolamide HCl 2 % Ophth Sol 10 ML DRPBTL 1 DROP EYE-LEFT (08:52)
[2022-01-19 11:26] VITALS: BP 104/59; PULSE 68; RESP 18; TEMP 36.8; O2SAT 93
--- NOTE | 2022-01-19 12:20 | MHC.CM.PN ---
Addendum entered by Geneva Sanderson 01/19/22 13:33: PER MD, PT LIKELY TO DC HOME WITH SERVICES TOMORROW. EEG AND MRI PENDING. Addendum entered by Geneva Sanderson 01/19/22 12:26: [facility] UNABLE TO ACCEPT PT THEY ARE NOT CONTRACTED WITH [employer] REFERRAL SENT TO [facility] PER [facility], THIS IS THE ONLY CONTRACTED [facility] IN THE AREA Original Note: CHLOE CALLED PTS DAUGHTER, CHLOE [phone] TO INFORM HER THE PT MAY BE CLEARED TO DC TODAY SHE IS AWARE VNA WAS RECOMMENDED FOR PT SERVICES SHE REPORTS THE PT DOES WELL FUNCTIONALLY BUT AGREES SHE MAY BENEFIT FROM SOME STRENGTH TRAINING SHE REPORTS THE PTS PCP IS CHAD [facility]OW[facility]URY AT [facility] IN [place] A REFERRAL WAS MADE TO [facility] CHLOE REPORTS SHE IS CURRENTLY ON HER WAY BACK FROM [place] BUT SHOULD BE HOME IN A COUPLE OF HOURS AND COULD TRANSPORT PT HOME LATER IN THE DAY SHE IS ALSO REQUESTING A CALL FROM THE MD TO DISCUSS PTS CONDITION. MESSAGE RELAYED VIA [place] [facility] [place] CURRENT DC PLAN IS HOME WITH [facility]NA FOR PT FAMILY TO TRANSPORT
--- NOTE | 2022-01-19 13:47 | P.DS_ITS ---
DS: Providers Provider Date of Service: 01/20/22 Date of admission: 01/17/22 17:49 Primary care physician: Unknown Physician Consults: 01/17/22 17:49 Consult to Neurology Routine Consulting Provider: [facility] Reason for consultation: resolved LLE weakness?, gait abnormality, decrease sensation left leg DS: Diagnosis Discharge Diagnosis (1) Transient left leg weakness: Status: Acute (2) Unsteady gait when walking: Status: Acute (3) Acute stroke due to ischemia: Status: Acute DS: Summary Hospital Course Hospital Course: Admission note HPI A 81 years old lady with PMH of glaucoma, advanced dementia on assisted living who presents to the hospital by EMS for reported abnormal gait and left lower extremity weakness. The patient is very poor historian, no information given by the staff at the assisted living, most information from MD and EMS.? She reports not remembering why did she end up in the hospital.? Denies feeling any weakness in any part of her body at this point.? Seems like in the morning she was seen walking in an awkward way and that was concerning for the staff who felt that her left lower extremity was weaker.? She was brought to the emergency but scored 0 [address] score.? CT scan of the head was done came back negative for any acute findings.? Blood work within normal with no acute infection noted.? Will be admitted for further evaluation and monitoring. Hospital course The patient was admitted for evaluation of transient left leg weakness for abnormal gait. Images of the brain including CT scan was negative for any acute findings. Neurology evaluated the patient and EEG was done showing normal brain waves. MRI was done showing evidence of stroke. You were started on baby aspirin and atorvastatin. Carotid ultrasound was done showing no significant stenosis. Echo was done. She did physical therapy evaluation who recommended home therapy at time of discharge. Lipid profile was within normal limits. To start baby aspirin and statin at time of discharge To do physical therapy at home To follow-up with PCP as outpatient Time Spent with Patient Time attestation: Total time spent providing and/or coordinating discharge services: Physical Exam Vital Signs: Vital Signs: Last Vital Signs Temp 98.3 F 01/19/22 11:26 Pulse 68 01/19/22 11:26 Resp 18 01/19/22 11:26 BP 104/59 L 01/19/22 11:26 Pulse Ox 93 01/19/22 11:26 O2 Del Method 01/19/22 11:26 BMI result Body Mass Index 25.9 Const: Other: Constitutional : Alert, oriented, not in distress Eyes: Pupils were round, reactive to light.?mild right-sided ptosis.? Neck : Normal inspection, Supple Cardiovascular : RRR, no JVP, no lower extremity edema Respiratory : fair bilateral air entry, no crackles, wheezes or rhonchi Gastrointestinal: soft, lax, Normal bowel sounds, Non tender Skin : Warm, Dry Neurological : Alert & oriented x3, No focal deficit , CN 2-12 within normal DS: Data Data Completed and Pending Labs on day of discharge: Laboratory Results - last 24 hr 01/19/22 07:25 POC Glucose 108 Imaging MRI - head: Radiologist's impression: ITS Impressions Head CT 01/17/22 15:17 IMPRESSION: 1. No acute intracranial pathology. Hip/Pelvis X-Ray 01/17/22 17:42 IMPRESSION: No acute fractures or malalignment. Brain MRI 01/19/22 13:17 IMPRESSION: Small area of acute infarction involving the right precentral and postcentral gyri. No evidence of hemorrhagic transformation. Background changes of chronic microangiopathy and brain parenchymal volume loss. Carotid Doppler Study 01/19/22 15:40 IMPRESSION: 1. RIGHT: Minimal, non-hemodynamically significant stenosis of the proximal right internal carotid artery corresponding to a 0-49% stenosis by velocity criteria. 2. LEFT: Minimal, non-hemodynamically significant stenosis of the proximal left internal carotid artery corresponding to a 0-49% stenosis by velocity criteria. 3. Incidentally noted thyroid goiter with nodules as large as 2.9 cm. Baseline thyroid ultrasound is recommended for further attenuation.. Discharge Plan Discharge Patient Disposition: Home Health Service Discharge Diagnosis: Acute stroke Gait abnormality Referrals: Physician,Unknown J [Primary Care Provider] - 1 Week Discharge Medications: New atorvastatin 40 mg Tablet 40 mg PO BEDTIME 30 Days Qty: 30 0RF aspirin 81 mg Tablet,Delayed Release (Dr/Ec) 81 mg PO DAILY Qty: 30 0RF Continued donepezil 5 mg tablet 1 tab PO DAILY brimonidine 0.2 % drops 1 drp ophthalmic-Left BID timolol maleate 0.5 % drops 1 drp ophthalmic (eye) BID dorzolamide 2 % drops 1 drp ophthalmic-Left BID multivitamin Tablet 1 tab PO DAILY Diet: advance to usual diet Activity on Discharge: As tolerated Stand Alone Forms: Patient Portal Discharge page Care Plan Goals: Read below Health Concerns: Read below Plan of Treatment: Read below Assessment: You were admitted to the hospital for evaluation of abnormal gait. Brain MRI showed an evidence of stroke. You were evaluated by neurologist and physical therapy team who recommended outpatient physical therapy. Start physical therapy at home Start baby aspirin and atorvastatin as prescribed continue current home medications
--- NOTE | 2022-01-19 15:05 | MHC.STROKE ---
01/17/22 EMS PRE-NOTIFIED, NO STROKE ALERT. DISCOVERY OF GAIT DISTURBANCE 0730. ARRIVED AT [facility] 1157. SEEN BY PROVIDER, NIHSS = 0, EXCLUDED FROM TPA BASED ON NIHSS AND DELAY IN ARRIVAL. TODAY PATIENT HAD A +MRI, I DID PROVIDE STROKE EDUCATION BUT I WILL NEED TO REINFORCE THIS WITH THE DAUGHTER. I REVIEWED THIS WITH THE RN JIE. I DID REVIEW THE STROKE EDUCATION BOOKLET, AND THE SCREENSHOT OF THE MRI AND EXPLAINED THAT SHE DID HAVE A STROKE, THE LOCATION AND THE CORRESPONDING SYMPTOMS. A STATIN IS RECOMMENDED, ANTIPLATELET, ECHO AND CAROTID US PART OF THE STROKE WORK-UP. DR. MENDOZA WAS NOTIFIED OF THE MRI RESULT. THE PATIENT HAS DEMENTIA AND WILL NEED REMINDERS TO THE PLAN OF CARE.
--- NOTE | 2022-01-19 15:06 | HO.PM.IMPN ---
Subjective Subjective Date of Service: 01/19/22 Interval History: Seen and evaluated this morning Stable left leg weakness upon ambulating Feels strong otherwise No other overnight events Review of Systems No fever, chills or weakness No chest pain, palpitation No shortness of breath or coughing No abdominal pain, nausea or vomiting No urinary symptoms No any rash or wounds Physical Exam Vital Signs: Vital Signs: Last Vital Signs Temp 98.3 F 01/19/22 11:26 Pulse 68 01/19/22 11:26 Resp 18 01/19/22 11:26 BP 104/59 L 01/19/22 11:26 Pulse Ox 93 01/19/22 11:26 O2 Del Method 01/19/22 11:26 BMI result Body Mass Index 25.9 Const: Other: Constitutional : Alert, oriented, not in distress Eyes: Pupils were round, reactive to light.?mild right-sided ptosis.? Neck : Normal inspection, Supple Cardiovascular : RRR, no JVP, no lower extremity edema Respiratory : fair bilateral air entry, no crackles, wheezes or rhonchi Gastrointestinal: soft, lax, Normal bowel sounds, Non tender Skin : Warm, Dry Neurological : Alert & oriented x3, No focal deficit , CN 2-12 within normal Objective Data Active Medications Acetaminophen (Acetaminophen 325 Mg Tablet) 650 mg PO Q6H PRN PRN Reason: Pain, Mild (Pain Scale 1-3) Aspirin (Aspirin Enteric Coated 81 Mg Tablet.Dr) 81 mg PO DAILY [facility] Last Admin: 01/19/22 08:50 Dose: 81 mg Documented By: VIRIDIANA Atorvastatin Calcium (Atorvastatin Calcium 40 Mg Tablet) 40 mg PO BEDTIME [facility] Brimonidine Tartrate (Brimonidine Tartrate 0.2% Oph 5 Ml Bottle) 1 drop EYE-LEFT BID [facility] Last Admin: 01/19/22 08:50 Dose: 1 drop Documented By: VIRIDIANA Donepezil HCl (Donepezil Hcl 5 Mg Tablet) 5 mg PO DAILY [facility] Last Admin: 01/19/22 08:50 Dose: 5 mg Documented By: VIRIDIANA Dorzolamide HCl (Dorzolamide Hcl 2 % Ophth Gavi 10 Ml Drpbtl) 1 drop EYE-LEFT BID [facility] Last Admin: 01/19/22 08:52 Dose: 1 drop Documented By: VIRIDIANA Enoxaparin Sodium (Enoxaparin Sodium 40 Mg/0.4 Ml Syringe) 40 mg SUBCUT Q24H [facility] Last Admin: 01/18/22 18:24 Dose: 40 mg Documented By: KOFI Multivitamins/Vitamin C (Multivitamin Tablet) 1 tab PO DAILY [facility] Last Admin: 01/19/22 08:50 Dose: 1 tab Documented By: VIRIDIANA Ondansetron HCl (Ondansetron Hcl 4 Mg/2 Ml Vial) 4 mg IVPUSH Q8H PRN PRN Reason: Nausea and Vomiting Pharmacy Consult (Consult Rx Perform Med Rec) 1 each MISCELLANE ONCE PRN PRN Reason: Consult order Pharmacy Consult (Consult Rx Perform Med Rec) 1 each MISCELLANE ONCE PRN PRN Reason: Consult order Timolol Maleate (Timolol Maleate 0.5 % Oph Gavi 5 Ml Drbtl) 1 drop EYE-BOTH BID [facility] Last Admin: 01/19/22 08:52 Dose: 1 drop Documented By: VIRIDIANA Labs CBC & Chem 7: 01/17/22 12:34 01/18/22 06:17 Labs: Laboratory Results - last 24 hr 01/19/22 07:25 POC Glucose 108 Assessment and Plan (1) Acute stroke due to ischemia: Status: Acute (2) Transient left leg weakness: Status: Acute (3) Unsteady gait when walking: Status: Acute Plan A 81 years old lady with PMH of glaucoma, advanced dementia on assisted living who presents to the hospital by EMS for reported abnormal gait and left lower extremity weakness. # acute stroke MRI showing acute precentral right-sided infarct EEG negative for any acute findings Neurology input appreciated, start aspirin and atorvastatin Check carotid Doppler and echo Keep on telemetry Within normal lipid profile Continue baby aspirin and atorvastatin Unsteady gait Home with [facility]NA per PT and OT evaluation Glaucoma continue home eye drops DVT PPX Lovenox The patient will need overnight hospital stay to finish workup for acute stroke event pending echo and Doppler ultrasound to prevent recurrent strokes. Quality Stroke Does the patient have a stroke diagnosis?: No VTE Prior VTE?: No VTE Risk Level:: Medical - moderate - high VTE Device Contraindication: Treatment Not Indicated VTE Drug Contraindication: N/A - Med Ordered
--- NOTE | 2022-01-19 15:33 | MHC.CM.PN ---
PT HAS BEEN ACCEPTED TO [facility]. THEY ARE AWARE SHE IS EXPECTED TO DISCHARGE TOMORROW BACK TO [facility]. DISCHARGEPLAN REMAINS IN PLACE; DAUGHTER WILL TRANSPORT HOME. WILL NEED A FACE TO FACE.
[2022-01-19 16:00] VITALS: BP 137/69; PULSE 70; RESP 14; TEMP 36.7; O2SAT 95
[2022-01-19] MEDS: Enoxaparin Sodium 40 MG/0.4 ML SYRINGE SUBCUT (19:20)
[2022-01-19] MEDS: Brimonidine Tartrate 0.2% Oph 5 ML BOTTLE 1 DROP EYE-RIGHT (19:59)
[2022-01-19] MEDS: Dorzolamide HCl 2 % Ophth Sol 10 ML DRPBTL 1 DROP EYE-RIGHT (19:59)
[2022-01-19 20:00] VITALS: BP 148/64; PULSE 84; RESP 14; TEMP 36.8; O2SAT 96
[2022-01-19 23:14] VITALS: BP 141/66; PULSE 63; RESP 18; TEMP 36.7; O2SAT 94
[2022-01-20] VITALS (9 sets, daily range): BP systolic 96–142; BP diastolic 51–74; PULSE 57–74; RESP 12–18; TEMP 36.1–37.1; O2SAT 92–98
--- NOTE | 2022-01-20 07:00 | CA_ITS ---
Transthoracic Echocardiogram Patient (Last, First, Middle): Corina Dyer, Gender: Female Date of : 1940 Age: 81 Procedure Date: 01/20/2022 Procedure Type: Transthoracic Echocardiogram Location: [facility] [place] Height: 162.56 cm Weight: 68.49 kg BSA: 1.74 m2 Heart Rate: bpm BP: 104 / 59 mmHg Financial Assistance Specialist: HEMA Referring MD: Rohini Georges MD Electronic Induction Hardener: Yosi Barrett MD Symptoms: post stroke Study Quality: Adequate ECG Rhythm: Sinus Conclusions: - 1. Normal LV systolic function with impaired relaxation filling pattern 2. Mild aortic and mitral regurgitation 3. Normal RV systolic pressure 4. No gross pericardial effusion Findings Left Ventricle Normal left ventricular size, thickness, and systolic function. The visually estimated ejection fraction is between 60-65%. Spectral Doppler is indicative of an impaired relaxation filling pattern. E/E prime ratio is between 8 and 15 consistent with indeterminate filling pressures. Right Ventricle Normal right ventricular cavity size and systolic function. Atria The left atrium is normal in size. There is lipomatous hypertrophy of the interatrial septum. Interatrial shunt cannot be excluded. The right atrium is normal in size. Aortic Valve There is mild calcification of the aortic valve. There is no aortic valve stenosis. There is mild aortic valve regurgitation. Mitral Valve There is mild anterior and posterior mitral leaflet thickening. There is mild mitral valve regurgitation. There is no mitral valve stenosis. Pulmonic Valve The pulmonic valve is likely normal. There is trace pulmonic valve regurgitation. Tricuspid Valve Normal tricuspid valve structure. There is trace tricuspid valve regurgitation. The right ventricular systolic pressure is normal. The right ventricular systolic pressure is 19 mmHg. Normal right atrial pressure. There is no evidence of pulmonary hypertension. Great Vessels All visible segments of the aorta are normal in size. The pulmonary artery was not well visualized. Venous The inferior vena cava is normal in size and collapses greater than 50% with inspiration. Pericardium/Pleural There is no evidence of pericardial effusion. Prior Study Comparison No prior study available for comparison. Recommendations, Care & Conclusions Recommend contrast study to evaluate intracardiac shunting. Measurements 2D Linear Measurements IVSd: 1.07 0.6-0.9/0.6-1.0 cm LVIDd: 4.57 3.9-5.3/4.2-5.9 cm LVIDd Index: 2.63 2.4-3.2/2.2-3.1 cm/m2 LVIDs: 2.69 2.0-3.6 cm LVPWd: 1.00 0.7-1.1 cm LA Diam: 3.50 2.7-3.8/3.0-4.0 cm LAIDs Index: 2.01 1.5-2.3 cm/m2 LV Mass: 204.65 67-162/88-224 g LV Mass Index: 117.62 43-95/49-115 g/m2 LVOT Diam: 1.80 3.0+(-)1.3 cm 2D Systolic Function EF 4C: 62.40 >55% EF 2C: 56.30 >55% EF BiP: 60.20 >55% Mitral Valve MV Pk E: 0.69 MV PK A: 0.76 MV Decel Time: 206.00 E/A: 0.90 E'Lateral: 5.00 E'Medial: 3.92 E/E' Med: 17.50 E/E' Lat: 13.70 PHT: 60.00 MVA PHT: 3.67 Decel [place]: 3.32 Aortic Valve AoV Pk James: 1.36 AoV Mn James: 0.88 AoV VTI: 0.33 AoV Pk Grad: 7.00 Aov Mn Grad: 4.00 ASH Cont.VTI: 2.07 AI Pk James: 4.03 AI [place]: 2.10 LVOT LVOT Pk James: 1.08 LVOT Mn James: 0.73 LVOT VTI: 0.27 LVOT Pk Grad: 5.00 LVOT Mn Grad: 2.00 LVOT Diam: 1.80 LVOT Area: 2.54 Diastolic Function MV Pk E: 0.69 MV Pk A: 0.76 E/A: 0.90 E'Medial: 3.92 E/E' Med: 17.50 E' Laterial: 5.00 E/E' Lat: 13.70 Right Ventricle TAPSE (mm): 22.70 TVS' James: 13.30 Tricuspid Valve TR Pk James: 1.98 TR Pk Grad: 16.00 RA Press: 3.00 RVSP: 19.00 Great Vessels Aorta Sinus of Valsalva: 3.35 2.0-3.[address] [place]: 2.99 1.7-3.4 cm Ao Asc: 3.50 2.1-3.4 cm Updated in Other Vendor System with Status of Final Yosi Barrett MD electronically signed on 01/21/2022 8:54:28 AM with status of Final
[2022-01-20] MEDS: Dorzolamide HCl 2 % Ophth Sol 10 ML DRPBTL 1 DROP EYE-RIGHT ×2 (10:13→21:30)
[2022-01-20] MEDS: Multivitamin TABLET 1 TAB PO (10:14)
[2022-01-20] MEDS: Donepezil HCl 5 MG TABLET PO (10:14)
[2022-01-20] MEDS: Aspirin Enteric Coated 81 MG TABLET.DR PO (10:14)
[2022-01-20] MEDS: Brimonidine Tartrate 0.2% Oph 5 ML BOTTLE 1 DROP EYE-RIGHT ×2 (10:15→21:30)
[2022-01-20] MEDS: timoloL maleate 0.5 % Oph Sol 5 ML DRBTL 1 DROP EYE-BOTH ×2 (10:16→21:30)
[2022-01-20 13:50] LABS: COVID-19 Test Negative (Negative)
--- NOTE | 2022-01-20 17:00 | P.PNIM_ITS ---
Subjective Subjective Date of Service: 01/20/22 Interval History: Seen and evaluated this morning Stable left leg weakness upon ambulating Feels strong otherwise No other overnight events Review of Systems No fever, chills or weakness No chest pain, palpitation No shortness of breath or coughing No abdominal pain, nausea or vomiting No urinary symptoms No any rash or wounds Physical Exam Vital Signs: Vital Signs: Last Vital Signs Temp 98.2 F 01/20/22 15:53 Pulse 69 01/20/22 15:53 Resp 14 01/20/22 15:53 BP 116/60 01/20/22 15:53 Pulse Ox 95 01/20/22 15:53 O2 Del Method 01/20/22 15:53 BMI result Body Mass Index 25.9 Const: Other: Constitutional : Alert, oriented, not in distress Eyes: Pupils were round, reactive to light.?mild right-sided ptosis.? Neck : Normal inspection, Supple Cardiovascular : RRR, no JVP, no lower extremity edema Respiratory : fair bilateral air entry, no crackles, wheezes or rhonchi Gastrointestinal: soft, lax, Normal bowel sounds, Non tender Skin : Warm, Dry Neurological : Alert & oriented x3, No focal deficit , CN 2-12 within normal Objective Data Active Medications Acetaminophen (Acetaminophen 325 Mg Tablet) 650 mg PO Q6H PRN PRN Reason: Pain, Mild (Pain Scale 1-3) Aspirin (Aspirin Enteric Coated 81 Mg Tablet.Dr) 81 mg PO DAILY [facility] Last Admin: 01/20/22 10:14 Dose: 81 mg Documented By: FERMIN Atorvastatin Calcium (Atorvastatin Calcium 40 Mg Tablet) 40 mg PO BEDTIME [facility] Brimonidine Tartrate (Brimonidine Tartrate 0.2% Oph 5 Ml Bottle) 1 drop EYE- RIGHT BID [facility] Last Admin: 01/20/22 10:15 Dose: 1 drop Documented By: FERMIN Donepezil HCl (Donepezil Hcl 5 Mg Tablet) 5 mg PO DAILY [facility] Last Admin: 01/20/22 10:14 Dose: 5 mg Documented By: FERMIN Dorzolamide HCl (Dorzolamide Hcl 2 % Ophth Gavi 10 Ml Drpbtl) 1 drop EYE-RIGHT BID [facility] Last Admin: 01/20/22 10:13 Dose: 1 drop Documented By: FERMIN Enoxaparin Sodium (Enoxaparin Sodium 40 Mg/0.4 Ml Syringe) 40 mg SUBCUT Q24H [facility] Last Admin: 01/19/22 19:20 Dose: 40 mg Documented By: MENA Multivitamins/Vitamin C (Multivitamin Tablet) 1 tab PO DAILY [facility] Last Admin: 01/20/22 10:14 Dose: 1 tab Documented By: FERMIN Ondansetron HCl (Ondansetron Hcl 4 Mg/2 Ml Vial) 4 mg IVPUSH Q8H PRN PRN Reason: Nausea and Vomiting Pharmacy Consult (Consult Rx Perform Med Rec) 1 each MISCELLANE ONCE PRN PRN Reason: Consult order Pharmacy Consult (Consult Rx Perform Med Rec) 1 each MISCELLANE ONCE PRN PRN Reason: Consult order Timolol Maleate (Timolol Maleate 0.5 % Oph Gavi 5 Ml Drbtl) 1 drop EYE-BOTH BID [facility] Last Admin: 01/20/22 10:16 Dose: 1 drop Documented By: FERMIN Labs CBC & Chem 7: 01/17/22 12:34 01/18/22 06:17 Labs: Laboratory Results - last 24 hr 01/20/22 13:17 COVID-19 (PATEL) Negative COVID-19 Clin Com See Note Assessment and Plan (1) Acute stroke due to ischemia: Status: Acute Plan A 81 years old lady with PMH of glaucoma, advanced dementia on assisted living who presents to the hospital by EMS for reported abnormal gait and left lower extremity weakness. # acute stroke MRI showing acute precentral right-sided infarct EEG negative for any acute findings Neurology input appreciated, start aspirin and atorvastatin carotid Doppler showing no significant stenosis PEnding ECHO to finalize work up for stroke Keep on telemetry Within normal lipid profile Continue baby aspirin and atorvastatin Unsteady gait Home with VNA per PT and OT evaluation Glaucoma continue home eye drops DVT PPX Lovenox The patient will need overnight hospital stay to finish workup for acute stroke event pending echo to finalize work up for stroke. Quality Stroke Does the patient have a stroke diagnosis?: No VTE Prior VTE?: No VTE Risk Level:: Medical - moderate - high VTE Device Contraindication: Treatment Not Indicated VTE Drug Contraindication: N/A - Med Ordered
[2022-01-20] MEDS: Atorvastatin Calcium 40 MG TABLET PO (21:29)
[2022-01-21 07:52] VITALS: BP 140/65; PULSE 71; RESP 20; TEMP 36.6; O2SAT 92
[2022-01-21] MEDS: Donepezil HCl 5 MG TABLET PO (08:29)
[2022-01-21] MEDS: Aspirin Enteric Coated 81 MG TABLET.DR PO (08:29)
[2022-01-21] MEDS: Multivitamin TABLET 1 TAB PO (08:29)
[2022-01-21] MEDS: Brimonidine Tartrate 0.2% Oph 5 ML BOTTLE 1 DROP EYE-RIGHT (08:30)
[2022-01-21] MEDS: Dorzolamide HCl 2 % Ophth Sol 10 ML DRPBTL 1 DROP EYE-RIGHT (08:30)
[2022-01-21] MEDS: timoloL maleate 0.5 % Oph Sol 5 ML DRBTL 1 DROP EYE-BOTH (08:30)
--- NOTE | 2022-01-21 11:26 | MHC.CM.PN ---
IMM 01/21/22 [id number] DX CVA She is discharged to home, [facility]. She will have home care services provided by [facility]. Her DtrElvira will provide transport home.
[2022-01-21 11:47] VITALS: BP 121/58; PULSE 63; RESP 20; TEMP 36.6; O2SAT 92
--- NOTE | 2022-01-21 11:56 | W.MHC.F2F ---
Service Date Service Date: 01/21/22 Encounter Date of encounter: 01/21/22 Reasons for Services Signs and symptoms assessed: left sided weakness Reason for prison: medication management, medication treatment and teach disease management Reason for physical therapy: home safety and mobility and therapeutic exercises Homebound: Leaving the home is medically contraindicated at this time without the asist of a device and/or another person due th the listed conditions above and below. Reason homebound: leg weakness Certification: Based on the above findings, I certify that this patient is confined to the home and needs intermittent prison care, physical therapy and/or speech therapy, or continues to need occupational therapy. The patient is under my care, and I have initiated the establishment of the plan of care. The patient will be followed by a physician who will periodically review the plan of care.
--- NOTE | 2022-01-21 11:57 | P.DS_ITS ---
DS: Providers Provider Date of Service: 01/21/22 Date of admission: 01/19/22 20:35 Primary care physician: Unknown Physician Consults: 01/17/22 17:49 Consult to Neurology Routine Consulting Provider: [facility] Reason for consultation: resolved LLE weakness?, gait abnormality, decrease sensation left leg DS: Diagnosis Discharge Diagnosis (1) Acute stroke due to ischemia: Status: Acute DS: Summary Hospital Course Hospital Course: Admission note HPI A 81 years old lady with PMH of glaucoma, advanced dementia on assisted living who presents to the hospital by EMS for reported abnormal gait and left lower extremity weakness. The patient is very poor historian, no information given by the staff at the assisted living, most information from MD and EMS.? She reports not remembering why did she end up in the hospital.? Denies feeling any weakness in any part of her body at this point.? Seems like in the morning she was seen walking in an awkward way and that was concerning for the staff who felt that her left lower extremity was weaker.? She was brought to the emergency but scored 0 on NIH score.? CT scan of the head was done came back negative for any acute findings.? Blood work within normal with no acute infection noted.? Will be admitted for further evaluation and monitoring. Hospital course The patient was admitted for evaluation of transient left leg weakness for abnormal gait. Images of the brain including CT scan was negative for any acute findings. Neurology evaluated the patient and EEG was done showing normal brain waves. MRI was done showing evidence of stroke. You were started on baby aspirin and atorvastatin. Carotid ultrasound was done showing no significant stenosis. Echo was done. She did physical therapy evaluation who recommended home therapy at time of discharge. Lipid profile was within normal limits. To start baby aspirin and statin at time of discharge To do physical therapy at home To follow-up with PCP as outpatient Time Spent with Patient Time attestation: Total time spent providing and/or coordinating discharge services: Discharge coordination time: Greater than 30 minutes Quality: Safe Use of Opioids Does Pt have an Active Cancer Diagnosis on the Problem List?: No Quality: Stroke Does the patient have a stroke diagnosis?: Yes Reason for No Anti-thrombotic at DC: N/A - Med Ordered Reason for No Anticoagulant at DC: Not indicated Reason Not Initiating IV-Tpa: Not indicated Reason for No Anti-thrombotic by Day Two: N/A - Med Ordered Reason for No Statin at DC: N/A - Med Ordered Physical Exam Vital Signs: Vital Signs: Last Vital Signs Temp 97.9 F 01/21/22 11:47 Pulse 63 01/21/22 11:47 Resp 20 01/21/22 11:47 BP 121/58 L 01/21/22 11:47 Pulse Ox 92 01/21/22 11:47 O2 Del Method 01/21/22 11:47 BMI result Body Mass Index 25.9 General: AO X 3, no acute distress Resp: CTA bilateral, no accessory muscles used CVS: S1,S2,RRR GI: soft, non tender, non distended Neuro: motor grossly intact, alert Psych: appropriate affect, appropriate insight DS: Data Data Completed and Pending Labs on day of discharge: Laboratory Results - last 24 hr 01/20/22 13:17 COVID-19 (PAT[facility]) Negative COVID-19 Clin Com See Note Discharge Plan Discharge Patient Disposition: Home Health Service Discharge Diagnosis: Acute stroke Gait abnormality Referrals: [facility] [Outside] - 1 Week Joaquin Alston MD [Physician] - 1 Week Discharge Medications: New atorvastatin 40 mg Tablet 40 mg PO BEDTIME 30 Days Qty: 30 0RF aspirin 81 mg Tablet,Delayed Release (Dr/Ec) 81 mg PO DAILY Qty: 30 0RF Continued donepezil 5 mg tablet 1 tab PO DAILY brimonidine 0.2 % drops 1 drp ophthalmic-Left BID timolol maleate 0.5 % drops 1 drp ophthalmic (eye) BID dorzolamide 2 % drops 1 drp ophthalmic-Left BID multivitamin Tablet 1 tab PO DAILY Discharge Orders: Discharge Order (Routine); Ordered 01/21/22 Ordered By: Manuelito Palmer Diet: advance to usual diet Activity on Discharge: As tolerated Stand Alone Forms: Patient Portal Discharge page Care Plan Goals: Read below Health Concerns: Read below Plan of Treatment: Read below Assessment: You were admitted to the hospital for evaluation of abnormal gait. Brain MRI showed an evidence of stroke. You were evaluated by neurologist and physical therapy team who recommended outpatient physical therapy. Start physical therapy at home Start baby aspirin and atorvastatin as prescribed continue current home medications
== END 2022-01-21 14:00 | disposition home health service (06) | DRG 66 ==
LOC: HO.ED 17:26 → HO.EDOVER 17:56 → HO.IMC 18:35
PROVIDERS: Admitting Provider Student in an Organized Health Care Education/Training Program; Emergency Provider Student in an Organized Health Care Education/Training Program; PCP Family Medicine; Visit Provider Internal Medicine
DX: I63.89 Other cerebral infarction (principal); H40.9 Unspecified glaucoma; G30.9 Alzheimer's disease, unspecified; F02.80 Dementia in other diseases classified elsewhere, unspecified severity, without behavioral disturbance, psychotic disturbance, mood disturbance, and anxiety; R26.81 Unsteadiness on feet; G83.14 Monoplegia of lower limb affecting left nondominant side; R29.700 NIHSS score 0; Z20.822 Contact with and (suspected) exposure to COVID-19; Z79.899 Other long term (current) drug therapy
CPT/HCPCS: 36415; 70450; 70553; 73502; 80048; 80053; 80061; 81003; 82947; 84484; 85025; 85610; 87635; 93005; 93306; 93880; 95816; 97161; 97165; 99285; A9585; J1650